=== PATIENT | male | born 1955 | race Two or more races ===

== ENCOUNTER 2018-03-28 07:50 | Inpatient (IN) | payer SELFPAY ==
[~2018-03-28] VITALS: Ht 167.6 cm; Wt 81.9 kg
[~2018-03-28 07:50] MED LIST: ALBU2.5V14 NEB; ALBU2.5V8 IH
[2018-03-28] MEDS ORDERED: ACETAMINOPHEN 500 MG TABLET PO ONE (08:30)
[2018-03-28] MEDS ORDERED: IBUPROFEN 600 MG TABLET. PO ONE (08:30)
[2018-03-28] MEDS ORDERED: PIPERACILLIN/TAZOBACTAM 4.5 GM in IV NORMAL SALINE 100ML 100 ML IV ONE (08:30)
[2018-03-28] MEDS ORDERED: VANCOMYCIN PER PHARMACY MC ONE (08:30)
--- NOTE | 2018-03-28 08:41 | PHYS DOC ---
Past Medical History Past Medical History: Asthma, Hypertension, Pneumonia, Other (BONG RAMSEY APRN) Past Surgical History: No Surgical History (BONG RAMSEY APRN) Alcohol Use: None Drug Use: None (BONG RAMSEY APRN) Adult General Chief Complaint Chief Complaint: SHORTNESS OF BREATH HPI HPI Patient is a 62 year old male with history of asthma, hypertension, who presents to the ED today complaining of a cough, shortness of breath, body aches and chills for 4 days. Patient is also complaining of vomiting intermittently for 4 days. Patient states he has tried using his inhaler with no relief. Patient denies any chest pain. Denies any abdominal pain or diarrhea. Historian was patient who speaks a little bit Bel[place]ian and the son who did most of the interpretation for Urdu (BONG RAMSEY APRN) Review of Systems Review of Systems Constitutional: Reports body aches, chills Eyes: Denies change in visual acuity, redness, or eye pain [] HENT: Denies nasal congestion or sore throat [] Respiratory: Reports cough and shortness of breath [] Cardiovascular: No additional information not addressed in HPI [] GI: Reports vomiting. Denies abdominal pain, nausea, bloody stools or diarrhea [ ] : Denies dysuria or hematuria [] Musculoskeletal: Denies back pain or joint pain [] Integument: Denies rash or skin lesions [] Neurologic: Denies headache, focal weakness or sensory changes [] All other systems were reviewed and found to be within normal limits, except as documented in this note. (BONG RAMSEY APRN) Current Medications Current Medications Current Medications Medications (Trade) Dose Ordered Sig/Jeanna Start Time Stop Time Status Last Admin Dose Admin Acetaminophen (Tylenol) 1,000 mg 1X ONCE 03/28/18 08:30 03/28/18 08:31 DC 03/28/18 09:31 1,000 MG Albuterol/ Ipratropium (Duoneb) 3 ml 1X ONCE 03/28/18 08:45 03/28/18 08:46 DC 03/28/18 08:56 3 ML Ibuprofen (Motrin) 600 mg 1X ONCE 03/28/18 08:30 03/28/18 08:31 DC 03/28/18 09:31 600 MG Methylprednisolone Sodium Succinate (SOLU-Medrol 125MG VIAL) 125 mg 1X ONCE 03/28/18 08:45 03/28/18 08:46 DC 03/28/18 09:35 125 MG Ondansetron HCl (Zofran) 4 mg 1X ONCE 03/28/18 08:45 03/28/18 08:46 DC 03/28/18 09:34 4 MG Piperacillin Sod/ Tazobactam Sod 4.5 gm/Sodium Chloride 100 ml @ 200 mls/hr 1X ONCE 03/28/18 08:30 03/28/18 08:59 DC 03/28/18 09:36 200 MLS/HR Sodium Chloride 1,000 ml @ 1,920 mls/hr Q32M 03/28/18 08:16 03/28/18 09:16 DC 03/28/18 09:29 1,920 MLS/HR Vancomycin HCl (Vanco Per Pharmacy) 1 each 1X ONCE 03/28/18 08:30 03/28/18 10:44 DC Vancomycin HCl 2 gm/Sodium Chloride 500 ml @ 250 mls/hr 1X ONCE 03/28/18 09:00 03/28/18 11:00 DC 03/28/18 09:00 250 MLS/HR (LISANDRA QUIROZ MD) Allergies Allergies Allergies Coded Allergies Type Severity Reaction Last Updated Verified No Known Drug Allergies 05/17/13 No (LISANDRA QUIROZ MD) Physical Exam Physical Exam Constitutional: Well developed, well nourished, no acute distress, non-toxic appearance. [] HENT: Normocephalic, atraumatic, bilateral external ears normal, oropharynx moist, no oral exudates, nose normal. [] Eyes: PERRLA, EOMI, conjunctiva normal, no discharge. [] Neck: Normal range of motion, no tenderness, supple, no stridor. [] Cardiovascular:Heart rate regular rhythm, no murmur [] Lungs & Thorax: Diminished breath sounds to posterior lung bases. Abdomen: Bowel sounds normal, soft, no tenderness, no masses, no pulsatile masses. [] Skin: Warm, dry, no erythema, no rash. [] Back: No tenderness, no CVA tenderness. [] Extremities: No tenderness, no cyanosis, no clubbing, ROM intact, no edema. [] Neurologic: Alert and oriented X 3, normal motor function, normal sensory function, no focal deficits noted. [] Psychologic: Affect normal, judgement normal, mood normal. [] (BONG RAMSEY APRN) Current Patient Data Vital Signs Vital Signs Date Time Temp Pulse Resp B/P (MAP) Pulse Ox O2 Delivery O2 Flow Rate FiO2 03/28/18 08:59 97 Room Air 03/28/18 08:06 103.2 90 149/78 (101) 103.2 (LISANDRA QUIROZ MD) Lab Values Laboratory Tests Test 03/28/18 08:15 03/28/18 08:20 03/28/18 09:26 Influenza Type A Antigen Positive (NEGATIVE) Influenza Type B Antigen Negative (NEGATIVE) White Blood Count 12.4 x10^3/uL (4.0-11.0) H Red Blood Count 4.76 x10^6/uL (4.30-5.70) Hemoglobin 15.4 g/dL (13.0-17.5) Hematocrit 44.4 % (39.0-53.0) Mean Corpuscular Volume 93 fL (79-100) Mean Corpuscular Hemoglobin 32 pg (25-35) Mean Corpuscular Hemoglobin Concent 35 g/dL (31-37) Red Cell Distribution Width 13.2 % (11.5-14.5) Platelet Count 183 x10^3/uL (140-400) Neutrophils (%) (Auto) 76 % (31-73) H Lymphocytes (%) (Auto) 13 % (24-48) L Monocytes (%) (Auto) 11 % (0-9) H Eosinophils (%) (Auto) 0 % (0-3) Basophils (%) (Auto) 0 % (0-3) Neutrophils # (Auto) 9.4 x10^3uL (1.8-7.7) H Lymphocytes # (Auto) 1.6 x10^3/uL (1.0-4.8) Monocytes # (Auto) 1.4 x10^3/uL (0.0-1.1) H Eosinophils # (Auto) 0.0 x10^3/uL (0.0-0.7) Basophils # (Auto) 0.0 x10^3/uL (0.0-0.2) Prothrombin Time 13.9 SEC (11.7-14.0) Prothrombin Time INR 1.1 (0.8-1.1) PTT 38 SEC (24-38) Sodium Level 130 mmol/L (136-145) L Potassium Level 3.4 mmol/L (3.5-5.1) L Chloride Level 97 mmol/L (98-107) L Carbon Dioxide Level 21 mmol/L (21-32) Anion Gap 12 (6-14) Blood Urea Nitrogen 16 mg/dL (8-26) Creatinine 1.0 mg/dL (0.7-1.3) Estimated GFR (Cockcroft-Gault) 75.7 BUN/Creatinine Ratio 16 (6-20) Glucose Level 107 mg/dL (70-99) H Lactic Acid Level 1.2 mmol/L (0.4-2.0) Calcium Level 8.3 mg/dL (8.5-10.1) L Total Bilirubin 1.5 mg/dL (0.2-1.0) H Aspartate Amino Transferase (AST) 40 U/L (15-37) H Alanine Aminotransferase (ALT) 74 U/L (16-63) H Alkaline Phosphatase 65 U/L (46-116) Creatine Kinase 223 U/L (39-308) Creatine Kinase MB (Mass) 1.0 ng/mL (0.0-3.6) Creatine Kinase MB Relative Index 0.4 % (0-4) Total Protein 7.9 g/dL (6.4-8.2) Albumin 3.4 g/dL (3.4-5.0) Albumin/Globulin Ratio 0.8 (1.0-1.7) L Procalcitonin 0.88 ng/mL (0.00-0.10) H Urine Collection Type Unknown Urine Color Cecilia Urine Clarity Clear Urine pH 5.5 Urine Specific [place] 1.025 Urine Protein 30 mg/dL (NEG-TRACE) Urine Glucose (UA) Negative mg/dL (NEG) Urine Ketones (Stick) Negative mg/dL (NEG) Urine Blood Negative (NEG) Urine Nitrite Negative (NEG) Urine Bilirubin Negative (NEG) Urine Urobilinogen Dipstick 1.0 mg/dL (0.2 mg/dL) Urine Leukocyte Esterase Negative (NEG) Urine RBC 0 /HPF (0-2) Urine WBC 1-4 /HPF (0-4) Urine Squamous Epithelial Cells Occ /LPF Urine Bacteria 0 /HPF (0-FEW) Urine Mucus Slight /LPF Laboratory Tests 03/28/18 08:20 Laboratory Tests 03/28/18 08:20 (LISANDRA QUIROZ MD) Lab Values Laboratory Tests Test 03/28/18 08:15 03/28/18 08:20 03/28/18 09:26 Influenza Type A Antigen Positive (NEGATIVE) Influenza Type B Antigen Negative (NEGATIVE) White Blood Count 12.4 x10^3/uL (4.0-11.0) H Red Blood Count 4.76 x10^6/uL (4.30-5.70) Hemoglobin 15.4 g/dL (13.0-17.5) Hematocrit 44.4 % (39.0-53.0) Mean Corpuscular Volume 93 fL (79-100) Mean Corpuscular Hemoglobin 32 pg (25-35) Mean Corpuscular Hemoglobin Concent 35 g/dL (31-37) Red Cell Distribution Width 13.2 % (11.5-14.5) Platelet Count 183 x10^3/uL (140-400) Neutrophils (%) (Auto) 76 % (31-73) H Lymphocytes (%) (Auto) 13 % (24-48) L Monocytes (%) (Auto) 11 % (0-9) H Eosinophils (%) (Auto) 0 % (0-3) Basophils (%) (Auto) 0 % (0-3) Neutrophils # (Auto) 9.4 x10^3uL (1.8-7.7) H Lymphocytes # (Auto) 1.6 x10^3/uL (1.0-4.8) Monocytes # (Auto) 1.4 x10^3/uL (0.0-1.1) H Eosinophils # (Auto) 0.0 x10^3/uL (0.0-0.7) Basophils # (Auto) 0.0 x10^3/uL (0.0-0.2) Prothrombin Time 13.9 SEC (11.7-14.0) Prothrombin Time INR 1.1 (0.8-1.1) PTT 38 SEC (24-38) Sodium Level 130 mmol/L (136-145) L Potassium Level 3.4 mmol/L (3.5-5.1) L Chloride Level 97 mmol/L (98-107) L Carbon Dioxide Level 21 mmol/L (21-32) Anion Gap 12 (6-14) Blood Urea Nitrogen 16 mg/dL (8-26) Creatinine 1.0 mg/dL (0.7-1.3) Estimated GFR (Cockcroft-Gault) 75.7 BUN/Creatinine Ratio 16 (6-20) Glucose Level 107 mg/dL (70-99) H Lactic Acid Level 1.2 mmol/L (0.4-2.0) Calcium Level 8.3 mg/dL (8.5-10.1) L Total Bilirubin 1.5 mg/dL (0.2-1.0) H Aspartate Amino Transferase (AST) 40 U/L (15-37) H Alanine Aminotransferase (ALT) 74 U/L (16-63) H Alkaline Phosphatase 65 U/L (46-116) Creatine Kinase 223 U/L (39-308) Creatine Kinase MB (Mass) 1.0 ng/mL (0.0-3.6) Creatine Kinase MB Relative Index 0.4 % (0-4) Total Protein 7.9 g/dL (6.4-8.2) Albumin 3.4 g/dL (3.4-5.0) Albumin/Globulin Ratio 0.8 (1.0-1.7) L Procalcitonin 0.88 ng/mL (0.00-0.10) H Urine Collection Type Unknown Urine Color Cecilia Urine Clarity Clear Urine pH 5.5 Urine Specific [place] 1.025 Urine Protein 30 mg/dL (NEG-TRACE) Urine Glucose (UA) Negative mg/dL (NEG) Urine Ketones (Stick) Negative mg/dL (NEG) Urine Blood Negative (NEG) Urine Nitrite Negative (NEG) Urine Bilirubin Negative (NEG) Urine Urobilinogen Dipstick 1.0 mg/dL (0.2 mg/dL) Urine Leukocyte Esterase Negative (NEG) Urine RBC 0 /HPF (0-2) Urine WBC 1-4 /HPF (0-4) Urine Squamous Epithelial Cells Occ /LPF Urine Bacteria 0 /HPF (0-FEW) Urine Mucus Slight /LPF Laboratory Tests 03/28/18 08:20 Laboratory Tests 03/28/18 08:20 (BONG RAMSEY APRN) EKG EKG 10:[address] Lebron sinus rhythm HR 92 no STEMI[] (BONG RAMSEY APRN) Radiology/Procedures Radiology/Procedures [] (BONG RAMSEY APRN) Course & Med Decision Making Course & Med Decision Making Pertinent Labs and Imaging studies reviewed. (See chart for details) This is a 62-year-old male patient presented to the ED today with complaints of cough, shortness of breath, vomiting, body aches, chills, symptoms for 4 days. Patient arrives in the ED with a temperature of 103.2, heart rate 90, blood pressure 149/78, O2 sats 96% on room air. Patient was started on the sepsis protocol including IV antibiotics and flu swabs and IV fluids. Patient was also given a DuoNeb treatment. Positive for influenza A, chest x-ray interpreted by radiologist was noted for right lower lobe infiltrate. CBC with a WBC of 12.4 and a left shift. CMP with sodium of 130, lactic is normal, AST 40 ALT 74 no abdominal pain. Consulted with Dr. Jiménez who accepted patient for admission. (BONG RAMSEY APRN) Course & Med Decision Making Staff Physician Addendum: I was working in the ER during the course of this patient's visit. I was available for consultation as needed, but I was not directly involved in the care of this patient. (LISANDRA QUIROZ MD) Dragon Disclaimer Dragon Disclaimer This electronic medical record was generated, in whole or in part, using a voice recognition dictation system. (BONG RAMSEY APRN) Departure Departure Impression: Primary Impression: Influenza A Additional Impressions: RLL pneumonia Shortness of breath Disposition: ADMITTED INPATIENT Condition: STABLE Referrals: NO PCP (PCP) Problem Qualifiers Additional Impressions: RLL pneumonia Pneumonia type: due to unspecified organism Qualified Codes: J18.1 - Lobar pneumonia, unspecified organism BONG RAMSEY APRN Mar 28, 2018 08:41 LISANDRA QUIROZ MD Mar 28, 2018 11:55
--- NOTE | 2018-03-28 08:42 | RAD ---
Chest, PA and Lateral: Technique: PA and lateral views of the chest were obtained. History: Cough, fever. Comparison: None. Findings: There is a focus of consolidation identified in the right lower lobe of the lung. The heart size grossly appears unremarkable. IMPRESSION: Focus of consolidation identified in the right lower lobe lung likely pneumonia. Follow-up to resolution. Electronically signed by: Bola Caba MD (03/28/2018 8:39 AM) [place] [id number]
[2018-03-28 08:43] LABS: BASO % 0 % (0-3); EOS % 0 % (0-3); HEMATOCRIT 44.4 % (39.0-53.0); HEMOGLOBIN 15.4 g/dL (13.0-17.5); LYMPH # 1.6 x10^3/uL (1.0-4.8); LYMPH % 13 % (24-48); MEAN CORPUSCULAR HEMOGLOBIN 32 pg (25-35); MEAN CORPUSCULAR HGB CONC 35 g/dL (31-37); MEAN CORPUSCULAR VOLUME 93 fL (79-100); MONO # 1.4 x10^3/uL (0.0-1.1); MONO % 11 % (0-9); NEUT # 9.4 x10^3uL (1.8-7.7); NEUT % 76 % (31-73); PLATELET COUNT 183 x10^3/uL (140-400); RED BLOOD COUNT 4.76 x10^6/uL (4.30-5.70); RED CELL DISTRIBUTION WIDTH 13.2 % (11.5-14.5); WHITE BLOOD COUNT 12.4 x10^3/uL (4.0-11.0)
[2018-03-28] MEDS ORDERED: methylPREDNISolone SOD SUCC PF 125 MG/2 ML VIAL. IV ONE (08:45)
[2018-03-28] MEDS ORDERED: IPRATRPIUM/ALBUTEROL 0.5/2.5MG 3 ML NEBU. NEB ONE (08:45)
[2018-03-28] MEDS ORDERED: ONDANSETRON PF 4 MG/2 ML VIAL. IV ONE (08:45)
[2018-03-28] MEDS: IV NORMAL SALINE 1000ML BAG 1,000 ML IV SCH ×2 (08:48→09:29)
[2018-03-28 08:56] LABS: CALCIUM 8.3 mg/dL (8.5-10.1); GFR 75.7; POTASSIUM 3.4 mmol/L (3.5-5.1)
[2018-03-28] MEDS ORDERED: VANCOMYCIN 2 GM in IV NORMAL SALINE 500ML BAG 500 ML IV ONE (09:00)
[2018-03-28 09:01] LABS: ALBUMIN 3.4 g/dL (3.4-5.0); ALBUMIN/GLOBULIN RATIO 0.8 (1.0-1.7); TOTAL BILIRUBIN 1.5 mg/dL (0.2-1.0); TOTAL PROTEIN 7.9 g/dL (6.4-8.2)
[2018-03-28 09:07] LABS: INFLUENZA A PATIENT POSITIVE (NEGATIVE); INFLUENZA B PATIENT NEGATIVE (NEGATIVE)
[2018-03-28 09:17] LABS: PROTHROMBIN TIME PATIENT 13.9 SEC (11.7-14.0)
[2018-03-28 09:58] LABS: BILIRUBIN,URINE NEGATIVE (NEG); CLARITY,URINE CLEAR; COLOR,URINE AMBER; NITRITE,URINE NEGATIVE (NEG); PH,URINE 5.5; PROTEIN,URINE 30 mg/dL (NEG-TRACE)
[2018-03-28 10:15] VITALS: BP 118/89
[2018-03-28] MEDS ORDERED: MORPHINE SULFATE 4 MG/ML VIAL. IV PRN (10:15)
[2018-03-28] MEDS ORDERED: ONDANSETRON PF 4 MG/2 ML VIAL. IV PRN (10:15)
[2018-03-28] MEDS ORDERED: ACETAMINOPHEN 325 MG TABLET. PO PRN (10:15)
[2018-03-28 10:21] LABS: SQUAMOUS EPITHELIAL CELL,UR OCC /LPF
[2018-03-28 10:22] LABS: BACTERIA,URINE 0 /HPF (0-FEW); RBC,URINE 0 /HPF (0-2)
--- NOTE | 2018-03-28 10:35 | PDOC1 ---
History and Physical Date of Admission Date of Admission DATE: 03/28/18 TIME: 10:35 Identification/Chief Complaint Chief Complaint seen in er , history of asthma, hypertension, who presents to the ED today complaining of a cough, shortness of breath, body aches and chills for 4 days. Patient is also complaining of vomiting intermittently for 4 days. Patient states he has tried using his inhaler with no relief. Patient denies any chest pain FLU SCREEN POS Past Medical History Cardiovascular: HTN, Hyperlipidemia Pulmonary: Asthma Dermatology: No pertinent hx Past Surgical History Past Surgical History: No pertinent history Family History Family History: Diabetes, Hypertension Social History Smoke: No ALCOHOL: none Drugs: None Current Problem List Problem List Problems Medical Problems: (1) Shortness of breath Status: Acute Current Medications Current Medications Current Medications Sodium Chloride 1,000 ml @ 1,920 mls/hr Q32M IV Last administered on at 09:29; Start 03/28/18 at 08:16; Stop 03/28/18 at 09:16; Status DC Piperacillin Sod/ Tazobactam Sod 4.5 gm/Sodium Chloride 100 ml @ 200 mls/hr 1X ONCE IV Last administered on 03/28/18at 09:36; Start 03/28/18 at 08:30; Stop 03/28/18 at 08:59; Status DC Vancomycin HCl (Vanco Per Pharmacy) 1 each 1X ONCE [facility] ; Start 03/28/18 at 08:30 ; Stop 03/28/18 at 08:31; Status UNV Acetaminophen (Tylenol) 1,000 mg 1X ONCE PO Last administered on 03/28/18at 09: 31; Start 03/28/18 at 08:30; Stop 03/28/18 at 08:31; Status DC Ibuprofen (Motrin) 600 mg 1X ONCE PO Last administered on 03/28/18at 09:31; Start 03/28/18 at 08:30; Stop 03/28/18 at 08:31; Status DC Vancomycin HCl 2 gm/Sodium Chloride 500 ml @ 250 mls/hr 1X ONCE IV Last administered on 03/28/18at 09:00; Start 03/28/18 at 09:00; Stop 03/28/18 at 10:59 Albuterol/ Ipratropium (Duoneb) 3 ml 1X ONCE NEB Last administered on at 08:56; Start 03/28/18 at 08:45; Stop 03/28/18 at 08:46; Status DC Methylprednisolone Sodium Succinate (SOLU-Medrol 125MG VIAL) 125 mg 1X ONCE IV Last administered on 03/28/18at 09:35; Start 03/28/18 at 08:45; Stop 03/28/18 at 08:46; Status DC Ondansetron HCl (Zofran) 4 mg 1X ONCE IV Last administered on 03/28/18at 09:34 ; Start 03/28/18 at 08:45; Stop 03/28/18 at 08:46; Status DC Ondansetron HCl (Zofran) 4 mg PRN Q8HRS PRN IV NAUSEA/VOMITING; Start 03/28/18 at 10:15; Stop 03/29/18 at 10:14; Status UNV Morphine Sulfate (Morphine Sulfate) 2 mg PRN Q2HR PRN IV PAIN; Start 03/28/18 at 10:15; Stop 03/29/18 at 10:14; Status UNV Acetaminophen (Tylenol) 650 mg PRN Q4HRS PRN PO FEVER; Start 03/28/18 at 10:15 ; Stop 03/29/18 at 10:14; Status UNV Active Scripts Active Reported Proair Hfa Inhaler (Albuterol Sulfate) 8.5 Gm Hfa.aer.ad 2 Puff IH PRN Q4-6HRS Albuterol Sulfate Conc Neb Soln (Albuterol Sulfate) 2.5 Mg/0.5 Ml Vial.neb 1 Vial NEB Q6HRS Allergies Allergies: Coded Allergies: No Known Drug Allergies (Unverified , 05/17/13) ROS Review of System Review of Systems Review of Systems Constitutional: Reports body aches, chills Eyes: Denies change in visual acuity, redness, or eye pain [] HENT: Denies nasal congestion or sore throat [] Respiratory: Reports cough and shortness of breath X 5 DAYS[] Cardiovascular: No additional information not addressed in HPI [] GI: Reports vomiting. Denies abdominal pain, nausea, bloody stools or diarrhea [ ] : Denies dysuria or hematuria [] Musculoskeletal: Denies back pain or joint pain [] Integument: Denies rash or skin lesions [] Neurologic: Denies headache, focal weakness or sensory changes [] 14 PT systems were reviewed and found to be within normal limits, except as documented in this note. PSYCHOLOGICAL ROS: No: Anxiety, Behavioral Disorder, Concentration difficultie , Decreased libido, Depression, Disorientation, Hallucinations, Hostility, Irritablity, Memory difficulties, Mood Swings, Obsessive thoughts, Physical abuse, Sexual abuse, Sleep disturbances, Suicidal ideation, Other ALLERGY AND IMMUNOLOGY: No: Hives, Insect Bite Sensitivity, Itchy/Watery Eyes, Nasal Congestion, Post Nasal Drip, Seasonal Allergies, Other Hematological and Lymphatic: No: Bleeding Problems, Blood Clots, Blood Transfusions, Brusing, Night Sweats, Pallor, Swollen Lymph Nodes, Other Respiratory: YES: Cough Cardiovascular: No Chest Pain, No Palpitations, No Orthopnea, No Paroxysmal Noc. Dyspnea, No Edema, No Lt Headedness, No Other Neurological: No Behavorial Changes, No Bowel/Bladder ControlChng, No Confusion , No Dizziness, No Gait Disturbance, No Headaches, No Impaired Coord/balance, No Memory Loss, No Numbness/Tingling, No Seizures, No Speech Problems, No Tremors, No Visual Changes, No Weakness, No Other Physical Exam Physical Exam Physical Exam Physical Exam Constitutional: Well developed, well nourished, MILD acute distress, non-toxic appearance. [] HENT: Normocephalic, atraumatic, bilateral external ears normal, oropharynx moist, no oral exudates, nose normal. [] Eyes: PERRLA, EOMI, conjunctiva normal, no discharge. [] Neck: Normal range of motion, no tenderness, supple, no stridor. [] Cardiovascular:Heart rate regular rhythm, no murmur [] Lungs & Thorax: Diminished breath sounds to posterior lung bases. FEW RHONCHI Abdomen: Bowel sounds normal, soft, no tenderness, no masses, no pulsatile masses. [] Skin: Warm, dry, no erythema, no rash. [] Back: No tenderness, no CVA tenderness. [] Extremities: No tenderness, no cyanosis, no clubbing, ROM intact, no edema. [] Neurologic: Alert and oriented X 3, normal motor function, normal sensory function, no focal deficits noted. [] Psychologic: Affect normal, judgement normal, mood normal. [] General: Alert, Oriented X3, Cooperative, mild distress HEENT: Atraumatic, PERRLA, EOMI, Mucous membr. moist/pink Lungs: Normal air movement Heart: S1S2, RRR, no thrills Breasts: Not examined Abdomen: Normal bowel sounds, Soft Rectal Exam: not examined PELVIC: Examination not indicated Extremities: No cyanosis, No edema Skin: No breakdown Neuro: Normal speech, Normal tone, Cranial nerves 3-12 NL Psych/Mental Status: Mental status NL, Mood NL Vitals Vitals Vital Signs Date Time Temp Pulse Resp B/P (MAP) Pulse Ox O2 Delivery O2 Flow Rate FiO2 03/28/18 09:59 100.9 100.9 03/28/18 09:38 91 16 119/69 (86) 94 Room Air Labs Labs Laboratory Tests Test 03/28/18 08:15 03/28/18 08:20 03/28/18 09:26 Influenza Type A Antigen Positive (NEGATIVE) Influenza Type B Antigen Negative (NEGATIVE) White Blood Count 12.4 x10^3/uL (4.0-11.0) Red Blood Count 4.76 x10^6/uL (4.30-5.70) Hemoglobin 15.4 g/dL (13.0-17.5) Hematocrit 44.4 % (39.0-53.0) Mean Corpuscular Volume 93 fL (79-100) Mean Corpuscular Hemoglobin 32 pg (25-35) Mean Corpuscular Hemoglobin Concent 35 g/dL (31-37) Red Cell Distribution Width 13.2 % (11.5-14.5) Platelet Count 183 x10^3/uL (140-400) Neutrophils (%) (Auto) 76 % (31-73) Lymphocytes (%) (Auto) 13 % (24-48) Monocytes (%) (Auto) 11 % (0-9) Eosinophils (%) (Auto) 0 % (0-3) Basophils (%) (Auto) 0 % (0-3) Neutrophils # (Auto) 9.4 x10^3uL (1.8-7.7) Lymphocytes # (Auto) 1.6 x10^3/uL (1.0-4.8) Monocytes # (Auto) 1.4 x10^3/uL (0.0-1.1) Eosinophils # (Auto) 0.0 x10^3/uL (0.0-0.7) Basophils # (Auto) 0.0 x10^3/uL (0.0-0.2) Prothrombin Time 13.9 SEC (11.7-14.0) Prothromb Time International Ratio 1.1 (0.8-1.1) Activated Partial Thromboplast Time 38 SEC (24-38) Sodium Level 130 mmol/L (136-145) Potassium Level 3.4 mmol/L (3.5-5.1) Chloride Level 97 mmol/L (98-107) Carbon Dioxide Level 21 mmol/L (21-32) Anion Gap 12 (6-14) Blood Urea Nitrogen 16 mg/dL (8-26) Creatinine 1.0 mg/dL (0.7-1.3) Estimated GFR (Cockcroft-Gault) 75.7 BUN/Creatinine Ratio 16 (6-20) Glucose Level 107 mg/dL (70-99) Lactic Acid Level 1.2 mmol/L (0.4-2.0) Calcium Level 8.3 mg/dL (8.5-10.1) Total Bilirubin 1.5 mg/dL (0.2-1.0) Aspartate Amino Transf (AST/SGOT) 40 U/L (15-37) Alanine Aminotransferase (ALT/SGPT) 74 U/L (16-63) Alkaline Phosphatase 65 U/L (46-116) Creatine Kinase 223 U/L (39-308) Creatine Kinase MB (Mass) 1.0 ng/mL (0.0-3.6) Creatine Kinase MB Relative Index 0.4 % (0-4) Total Protein 7.9 g/dL (6.4-8.2) Albumin 3.4 g/dL (3.4-5.0) Albumin/Globulin Ratio 0.8 (1.0-1.7) Procalcitonin 0.88 ng/mL (0.00-0.10) Urine Collection Type Unknown Urine Color Cecilia Urine Clarity Clear Urine pH 5.5 Urine Specific Gem 1.025 Urine Protein 30 mg/dL (NEG-TRACE) Urine Glucose (UA) Negative mg/dL (NEG) Urine Ketones (Stick) Negative mg/dL (NEG) Urine Blood Negative (NEG) Urine Nitrite Negative (NEG) Urine Bilirubin Negative (NEG) Urine Urobilinogen Dipstick 1.0 mg/dL (0.2 mg/dL) Urine Leukocyte Esterase Negative (NEG) Urine RBC 0 /HPF (0-2) Urine WBC 1-4 /HPF (0-4) Urine Squamous Epithelial Cells Occ /LPF Urine Bacteria 0 /HPF (0-FEW) Urine Mucus Slight /LPF Laboratory Tests Test 03/28/18 08:15 03/28/18 08:20 03/28/18 09:26 Influenza Type A Antigen Positive (NEGATIVE) Influenza Type B Antigen Negative (NEGATIVE) White Blood Count 12.4 x10^3/uL (4.0-11.0) Red Blood Count 4.76 x10^6/uL (4.30-5.70) Hemoglobin 15.4 g/dL (13.0-17.5) Hematocrit 44.4 % (39.0-53.0) Mean Corpuscular Volume 93 fL (79-100) Mean Corpuscular Hemoglobin 32 pg (25-35) Mean Corpuscular Hemoglobin Concent 35 g/dL (31-37) Red Cell Distribution Width 13.2 % (11.5-14.5) Platelet Count 183 x10^3/uL (140-400) Neutrophils (%) (Auto) 76 % (31-73) Lymphocytes (%) (Auto) 13 % (24-48) Monocytes (%) (Auto) 11 % (0-9) Eosinophils (%) (Auto) 0 % (0-3) Basophils (%) (Auto) 0 % (0-3) Neutrophils # (Auto) 9.4 x10^3uL (1.8-7.7) Lymphocytes # (Auto) 1.6 x10^3/uL (1.0-4.8) Monocytes # (Auto) 1.4 x10^3/uL (0.0-1.1) Eosinophils # (Auto) 0.0 x10^3/uL (0.0-0.7) Basophils # (Auto) 0.0 x10^3/uL (0.0-0.2) Prothrombin Time 13.9 SEC (11.7-14.0) Prothromb Time International Ratio 1.1 (0.8-1.1) Activated Partial Thromboplast Time 38 SEC (24-38) Sodium Level 130 mmol/L (136-145) Potassium Level 3.4 mmol/L (3.5-5.1) Chloride Level 97 mmol/L (98-107) Carbon Dioxide Level 21 mmol/L (21-32) Anion Gap 12 (6-14) Blood Urea Nitrogen 16 mg/dL (8-26) Creatinine 1.0 mg/dL (0.7-1.3) Estimated GFR (Cockcroft-Gault) 75.7 BUN/Creatinine Ratio 16 (6-20) Glucose Level 107 mg/dL (70-99) Lactic Acid Level 1.2 mmol/L (0.4-2.0) Calcium Level 8.3 mg/dL (8.5-10.1) Total Bilirubin 1.5 mg/dL (0.2-1.0) Aspartate Amino Transf (AST/SGOT) 40 U/L (15-37) Alanine Aminotransferase (ALT/SGPT) 74 U/L (16-63) Alkaline Phosphatase 65 U/L (46-116) Creatine Kinase 223 U/L (39-308) Creatine Kinase MB (Mass) 1.0 ng/mL (0.0-3.6) Creatine Kinase MB Relative Index 0.4 % (0-4) Total Protein 7.9 g/dL (6.4-8.2) Albumin 3.4 g/dL (3.4-5.0) Albumin/Globulin Ratio 0.8 (1.0-1.7) Procalcitonin 0.88 ng/mL (0.00-0.10) Urine Collection Type Unknown Urine Color Cecilia Urine Clarity Clear Urine pH 5.5 Urine Specific Gem 1.025 Urine Protein 30 mg/dL (NEG-TRACE) Urine Glucose (UA) Negative mg/dL (NEG) Urine Ketones (Stick) Negative mg/dL (NEG) Urine Blood Negative (NEG) Urine Nitrite Negative (NEG) Urine Bilirubin Negative (NEG) Urine Urobilinogen Dipstick 1.0 mg/dL (0.2 mg/dL) Urine Leukocyte Esterase Negative (NEG) Urine RBC 0 /HPF (0-2) Urine WBC 1-4 /HPF (0-4) Urine Squamous Epithelial Cells Occ /LPF Urine Bacteria 0 /HPF (0-FEW) Urine Mucus Slight /LPF Images Images Chest, PA and Lateral: Technique: PA and lateral views of the chest were obtained. History: Cough, fever. Comparison: None. Findings: There is a focus of consolidation identified in the right lower lobe of the lung. The heart size grossly appears unremarkable. IMPRESSION: Focus of consolidation identified in the right lower lobe lung likely pneumonia. Follow-up to resolution. Electronically signed by: Bola Caba MD (03/28/2018 8:39 AM) [place] [id number] DICTATED and SIGNED BY: BOLA CABA MD DATE: 03/28/18 0838 VTE Prophylaxis Ordered VTE Prophylaxis Devices: Yes VTE Pharmacological Prophylaxi: Yes Assessment/Plan Assessment/Plan IMPRESSION 1. consolidation identified in the right lower lobe lung likely pneumonia. 2. FLU A POS 3. HX HTN 4. MILD HYPONATREMIA, HYPOKALEMIA 5. HX ASTHMA PLAN IV ZOSYN/ ,LEVAQUIN TAMIFLU 75 MG PO BID X 5 DAYS K-DUR 40 MEQ X1 IV FLUID SUPPORT DVT PROPHYLAXIS LUI BOB MD Mar 28, 2018 10:35
[2018-03-28] MEDS ORDERED: PROAIR (10:43)
[2018-03-28] MEDS ORDERED: LISI40TA2 (10:43)
[2018-03-28] MEDS ORDERED: BUDE10.2 (10:43)
[2018-03-28] MEDS: ENOXAPARIN 40 MG/0.4 ML SYRINGE. SQ SCH (12:45)
[2018-03-28] MEDS: OSELTAMIVIR 75 MG CAPSULE PO SCH ×2 (13:07→21:01)
[2018-03-28] MEDS: methylPREDNISolone SOD SUCC PF 40 MG/ML VIAL. IV SCH ×2 (13:08→22:18)
--- NOTE | 2018-03-28 15:12 | EKG ---
[facility] [address] [place] [address] Test Date: 2018-03-28 Test Time: 09:03:43 Pat Name: RANDEE MARTINEZDepartment: Room: Gender: M Booth Operator: : [id number] Requested By: BONG RAMSEY Order Number: [id number] Reading MD: Measurements Intervals [place] Rate: P: ME: QRS: QRSD: T: QT: QTc: Interpretive Statements
[2018-03-28 15:20] VITALS: BP 120/71
[2018-03-28] MEDS: IPRATRPIUM/ALBUTEROL 0.5/2.5MG 3 ML NEBU. NEB SCH ×2 (15:55→21:44)
[2018-03-28] MEDS: PIPERACILLIN/TAZOBACTAM 4.5 GM in IV NORMAL SALINE 100ML 100 ML IV SCH ×2 (16:19→22:18)
[2018-03-28 19:00] VITALS: BP 124/72
[2018-03-28] MEDS: LACTOBACILLUS RHAMNOSUS GG 1 CAPSULE. PO SCH (21:01)
[2018-03-28 23:00] VITALS: BP 144/77
[2018-03-29 03:00] VITALS: BP 133/64
[2018-03-29] MEDS: PIPERACILLIN/TAZOBACTAM 4.5 GM in IV NORMAL SALINE 100ML 100 ML IV SCH ×2 (04:14→08:11)
[2018-03-29 04:43] LABS: BASO % 0 % (0-3); EOS % 0 % (0-3); HEMATOCRIT 43.7 % (39.0-53.0); HEMOGLOBIN 15.1 g/dL (13.0-17.5); LYMPH # 1.1 x10^3/uL (1.0-4.8); LYMPH % 8 % (24-48); MEAN CORPUSCULAR HEMOGLOBIN 32 pg (25-35); MEAN CORPUSCULAR HGB CONC 35 g/dL (31-37); MEAN CORPUSCULAR VOLUME 94 fL (79-100); MONO # 0.5 x10^3/uL (0.0-1.1); MONO % 4 % (0-9); NEUT # 12.1 x10^3uL (1.8-7.7); NEUT % 88 % (31-73); PLATELET COUNT 197 x10^3/uL (140-400); RED BLOOD COUNT 4.66 x10^6/uL (4.30-5.70); RED CELL DISTRIBUTION WIDTH 13.2 % (11.5-14.5); WHITE BLOOD COUNT 13.7 x10^3/uL (4.0-11.0)
[2018-03-29 04:47] LABS: CALCIUM 8.5 mg/dL (8.5-10.1); GFR 75.7; POTASSIUM 3.3 mmol/L (3.5-5.1)
[2018-03-29] MEDS: methylPREDNISolone SOD SUCC PF 40 MG/ML VIAL. IV SCH ×3 (06:00→21:16)
--- NOTE | 2018-03-29 06:20 | NUR ---
IP: Pt is influenza + requiring droplet precautions for 5 days and 24 hours without a fever, whichever is longest.
[2018-03-29 07:00] VITALS: BP 134/75
[2018-03-29] MEDS: IPRATRPIUM/ALBUTEROL 0.5/2.5MG 3 ML NEBU. NEB SCH ×4 (07:22→19:00)
[2018-03-29] MEDS: OSELTAMIVIR 75 MG CAPSULE PO SCH ×2 (08:11→21:15)
[2018-03-29] MEDS: LACTOBACILLUS RHAMNOSUS GG 1 CAPSULE. PO SCH ×2 (08:11→21:16)
[2018-03-29 11:00] VITALS: BP 153/91
--- NOTE | 2018-03-29 11:07 | PDOC ---
Infectious Disease Note Vital Signs: Vital Signs Vital Signs Date Time Temp Pulse Resp B/P (MAP) Pulse Ox O2 Delivery O2 Flow Rate FiO2 03/29/18 07:20 94 Room Air 03/29/18 07:00 97.6 87 18 134/75 (94) 97.6 Medications: Inpatient Meds: Current Medications Medications (Trade) Dose Ordered Sig/Jeanna Start Time Stop Time Status Last Admin Dose Admin Acetaminophen (Tylenol) 650 mg PRN Q4HRS PRN 03/28/18 10:15 03/29/18 10:14 DC 03/28/18 13:08 650 MG Albuterol/ Ipratropium (Duoneb) 3 ml RTQID 03/28/18 16:00 03/29/18 07:22 3 ML Enoxaparin Sodium (Lovenox 40mg Syringe) 40 mg Q24H 03/28/18 12:45 Ibuprofen (Motrin) 600 mg 1X ONCE 03/28/18 08:30 03/28/18 08:31 DC 03/28/18 09:31 600 MG Lactobacillus Rhamnosus (Culturelle) 1 cap BID 03/28/18 21:00 03/29/18 08:11 1 CAP Levofloxacin/ Dextrose 100 ml @ 100 mls/hr Q24H 03/28/18 13:00 03/29/18 10:58 DC 03/28/18 13:08 100 MLS/HR Linezolid (Zyvox) 600 mg BID 03/29/18 11:00 Methylprednisolone Sodium Succinate (SOLU-Medrol 40MG VIAL) 80 mg Q8HRS 03/28/18 14:00 03/29/18 06:00 80 MG Methylprednisolone Sodium Succinate (SOLU-Medrol 125MG VIAL) 125 mg 1X ONCE 03/28/18 08:45 03/28/18 08:46 DC 03/28/18 09:35 125 MG Morphine Sulfate (Morphine Sulfate) 2 mg PRN Q2HR PRN 03/28/18 10:15 03/29/18 10:14 DC Ondansetron HCl (Zofran) 4 mg PRN Q8HRS PRN 03/28/18 10:15 03/29/18 10:14 DC Oseltamivir Phosphate (Tamiflu) 75 mg BID 03/28/18 13:00 04/02/18 12:59 03/29/18 08:11 75 MG Piperacillin Sod/ Tazobactam Sod 3.375 gm/Sodium Chloride 50 ml @ 100 mls/hr Q6HRS 03/29/18 12:00 Piperacillin Sod/ Tazobactam Sod 4.5 gm/Sodium Chloride 100 ml @ 200 mls/hr Q6H 03/28/18 16:00 03/29/18 10:58 DC 03/29/18 08:11 200 MLS/HR Sodium Chloride 1,000 ml @ 1,920 mls/hr Q32M 03/28/18 08:16 03/28/18 09:16 DC 03/28/18 08:48 1,920 MLS/HR Vancomycin HCl (Vanco Per Pharmacy) 1 each 1X ONCE 03/28/18 08:30 03/28/18 10:44 DC 03/28/18 08:30 1 EACH Vancomycin HCl 2 gm/Sodium Chloride 500 ml @ 250 mls/hr 1X ONCE 03/28/18 09:00 03/29/18 10:58 DC 03/28/18 09:00 250 MLS/HR Labs: Lab Laboratory Tests Test 03/28/18 12:30 03/29/18 04:08 Lactic Acid Level 1.1 mmol/L (0.4-2.0) White Blood Count 13.7 x10^3/uL (4.0-11.0) Red Blood Count 4.66 x10^6/uL (4.30-5.70) Hemoglobin 15.1 g/dL (13.0-17.5) Hematocrit 43.7 % (39.0-53.0) Mean Corpuscular Volume 94 fL (79-100) Mean Corpuscular Hemoglobin 32 pg (25-35) Mean Corpuscular Hemoglobin Concent 35 g/dL (31-37) Red Cell Distribution Width 13.2 % (11.5-14.5) Platelet Count 197 x10^3/uL (140-400) Neutrophils (%) (Auto) 88 % (31-73) Lymphocytes (%) (Auto) 8 % (24-48) Monocytes (%) (Auto) 4 % (0-9) Eosinophils (%) (Auto) 0 % (0-3) Basophils (%) (Auto) 0 % (0-3) Neutrophils # (Auto) 12.1 x10^3uL (1.8-7.7) Lymphocytes # (Auto) 1.1 x10^3/uL (1.0-4.8) Monocytes # (Auto) 0.5 x10^3/uL (0.0-1.1) Eosinophils # (Auto) 0.0 x10^3/uL (0.0-0.7) Basophils # (Auto) 0.0 x10^3/uL (0.0-0.2) Sodium Level 141 mmol/L (136-145) Potassium Level 3.3 mmol/L (3.5-5.1) Chloride Level 107 mmol/L (98-107) Carbon Dioxide Level 19 mmol/L (21-32) Anion Gap 15 (6-14) Blood Urea Nitrogen 15 mg/dL (8-26) Creatinine 1.0 mg/dL (0.7-1.3) Estimated GFR (Cockcroft-Gault) 75.7 Glucose Level 164 mg/dL (70-99) Calcium Level 8.5 mg/dL (8.5-10.1) Objective: Assessment: Rt lung pneumonia Leucocytosis fever Influenza A HTN Plan: Plan of Care cont zosyn and tamiflu add zyvox dc iv vanc and levaquin f/u labs in am and cults Thank you [id number] MUNIR HENDRICKSON MD Mar 29, 2018 11:07
--- NOTE | 2018-03-29 11:18 | PDOC ---
PROGRESS NOTES History of Present Illness History of Present Illness Assessment/Plan Assessment/Plan IMPRESSION 1. consolidation identified in the right lower lobe lung likely pneumonia. 2. FLU A POS 3. HX HTN 4. MILD HYPONATREMIA, HYPOKALEMIA 5. HX ASTHMA 6. SEPSIS PLAN IV ZOSYN/ ,ZYVOX D/C VANC AND LEVAQUIN TAMIFLU 75 MG PO BID X 5 DAYS K-DUR 40 MEQ X1 03/28 03/29 IV FLUID SUPPORT DVT PROPHYLAXIS ID CONSULT HUMIDOD DM 2 PO BID LUI BOB MD Mar 28, 2018 10:35 Past Medical History Past Medical History: Asthma, Pneumonia, Other Past Surgical History: No Surgical History, Other Alcohol Use: None Drug Use: None Vitals Vitals Vital Signs Date Time Temp Pulse Resp B/P (MAP) Pulse Ox O2 Delivery O2 Flow Rate FiO2 03/29/18 11:00 98.1 70 17 153/91 (111) 92 Room Air 98.1 Physical Exam General: Alert, Oriented X3, Cooperative, mild distress Heart: Regular rate, Normal S1 Lungs: Crackles Abdomen: Normal bowel sounds, Soft Extremities: No clubbing, No cyanosis, No edema Skin: No breakdown Labs LABS Laboratory Tests Test 03/28/18 12:30 03/29/18 04:08 Lactic Acid Level 1.1 mmol/L (0.4-2.0) White Blood Count 13.7 x10^3/uL (4.0-11.0) Red Blood Count 4.66 x10^6/uL (4.30-5.70) Hemoglobin 15.1 g/dL (13.0-17.5) Hematocrit 43.7 % (39.0-53.0) Mean Corpuscular Volume 94 fL (79-100) Mean Corpuscular Hemoglobin 32 pg (25-35) Mean Corpuscular Hemoglobin Concent 35 g/dL (31-37) Red Cell Distribution Width 13.2 % (11.5-14.5) Platelet Count 197 x10^3/uL (140-400) Neutrophils (%) (Auto) 88 % (31-73) Lymphocytes (%) (Auto) 8 % (24-48) Monocytes (%) (Auto) 4 % (0-9) Eosinophils (%) (Auto) 0 % (0-3) Basophils (%) (Auto) 0 % (0-3) Neutrophils # (Auto) 12.1 x10^3uL (1.8-7.7) Lymphocytes # (Auto) 1.1 x10^3/uL (1.0-4.8) Monocytes # (Auto) 0.5 x10^3/uL (0.0-1.1) Eosinophils # (Auto) 0.0 x10^3/uL (0.0-0.7) Basophils # (Auto) 0.0 x10^3/uL (0.0-0.2) Sodium Level 141 mmol/L (136-145) Potassium Level 3.3 mmol/L (3.5-5.1) Chloride Level 107 mmol/L (98-107) Carbon Dioxide Level 19 mmol/L (21-32) Anion Gap 15 (6-14) Blood Urea Nitrogen 15 mg/dL (8-26) Creatinine 1.0 mg/dL (0.7-1.3) Estimated GFR (Cockcroft-Gault) 75.7 Glucose Level 164 mg/dL (70-99) Calcium Level 8.5 mg/dL (8.5-10.1) Assessment and Plan Assessmemt and Plan Problems Medical Problems: (1) Shortness of breath Status: Acute Comment Review of Relevant I have reviewed the following items natasha (where applicable) has been applied. Labs Laboratory Tests Test 03/28/18 08:15 03/28/18 08:20 03/28/18 09:26 03/28/18 12:30 Influenza Type A Antigen Positive (NEGATIVE) Influenza Type B Antigen Negative (NEGATIVE) White Blood Count 12.4 x10^3/uL (4.0-11.0) Red Blood Count 4.76 x10^6/uL (4.30-5.70) Hemoglobin 15.4 g/dL (13.0-17.5) Hematocrit 44.4 % (39.0-53.0) Mean Corpuscular Volume 93 fL (79-100) Mean Corpuscular Hemoglobin 32 pg (25-35) Mean Corpuscular Hemoglobin Concent 35 g/dL (31-37) Red Cell Distribution Width 13.2 % (11.5-14.5) Platelet Count 183 x10^3/uL (140-400) Neutrophils (%) (Auto) 76 % (31-73) Lymphocytes (%) (Auto) 13 % (24-48) Monocytes (%) (Auto) 11 % (0-9) Eosinophils (%) (Auto) 0 % (0-3) Basophils (%) (Auto) 0 % (0-3) Neutrophils # (Auto) 9.4 x10^3uL (1.8-7.7) Lymphocytes # (Auto) 1.6 x10^3/uL (1.0-4.8) Monocytes # (Auto) 1.4 x10^3/uL (0.0-1.1) Eosinophils # (Auto) 0.0 x10^3/uL (0.0-0.7) Basophils # (Auto) 0.0 x10^3/uL (0.0-0.2) Prothrombin Time 13.9 SEC (11.7-14.0) Prothromb Time International Ratio 1.1 (0.8-1.1) Activated Partial Thromboplast Time 38 SEC (24-38) Sodium Level 130 mmol/L (136-145) Potassium Level 3.4 mmol/L (3.5-5.1) Chloride Level 97 mmol/L (98-107) Carbon Dioxide Level 21 mmol/L (21-32) Anion Gap 12 (6-14) Blood Urea Nitrogen 16 mg/dL (8-26) Creatinine 1.0 mg/dL (0.7-1.3) Estimated GFR (Cockcroft-Gault) 75.7 BUN/Creatinine Ratio 16 (6-20) Glucose Level 107 mg/dL (70-99) Lactic Acid Level 1.2 mmol/L (0.4-2.0) 1.1 mmol/L (0.4-2.0) Calcium Level 8.3 mg/dL (8.5-10.1) Total Bilirubin 1.5 mg/dL (0.2-1.0) Aspartate Amino Transf (AST/SGOT) 40 U/L (15-37) Alanine Aminotransferase (ALT/SGPT) 74 U/L (16-63) Alkaline Phosphatase 65 U/L (46-116) Creatine Kinase 223 U/L (39-308) Creatine Kinase MB (Mass) 1.0 ng/mL (0.0-3.6) Creatine Kinase MB Relative Index 0.4 % (0-4) Total Protein 7.9 g/dL (6.4-8.2) Albumin 3.4 g/dL (3.4-5.0) Albumin/Globulin Ratio 0.8 (1.0-1.7) Procalcitonin 0.88 ng/mL (0.00-0.10) Urine Collection Type Unknown Urine Color Cecilia Urine Clarity Clear Urine pH 5.5 Urine Specific Garrett 1.025 Urine Protein 30 mg/dL (NEG-TRACE) Urine Glucose (UA) Negative mg/dL (NEG) Urine Ketones (Stick) Negative mg/dL (NEG) Urine Blood Negative (NEG) Urine Nitrite Negative (NEG) Urine Bilirubin Negative (NEG) Urine Urobilinogen Dipstick 1.0 mg/dL (0.2 mg/dL) Urine Leukocyte Esterase Negative (NEG) Urine RBC 0 /HPF (0-2) Urine WBC 1-4 /HPF (0-4) Urine Squamous Epithelial Cells Occ /LPF Urine Bacteria 0 /HPF (0-FEW) Urine Mucus Slight /LPF Test 03/29/18 04:08 White Blood Count 13.7 x10^3/uL (4.0-11.0) Red Blood Count 4.66 x10^6/uL (4.30-5.70) Hemoglobin 15.1 g/dL (13.0-17.5) Hematocrit 43.7 % (39.0-53.0) Mean Corpuscular Volume 94 fL (79-100) Mean Corpuscular Hemoglobin 32 pg (25-35) Mean Corpuscular Hemoglobin Concent 35 g/dL (31-37) Red Cell Distribution Width 13.2 % (11.5-14.5) Platelet Count 197 x10^3/uL (140-400) Neutrophils (%) (Auto) 88 % (31-73) Lymphocytes (%) (Auto) 8 % (24-48) Monocytes (%) (Auto) 4 % (0-9) Eosinophils (%) (Auto) 0 % (0-3) Basophils (%) (Auto) 0 % (0-3) Neutrophils # (Auto) 12.1 x10^3uL (1.8-7.7) Lymphocytes # (Auto) 1.1 x10^3/uL (1.0-4.8) Monocytes # (Auto) 0.5 x10^3/uL (0.0-1.1) Eosinophils # (Auto) 0.0 x10^3/uL (0.0-0.7) Basophils # (Auto) 0.0 x10^3/uL (0.0-0.2) Sodium Level 141 mmol/L (136-145) Potassium Level 3.3 mmol/L (3.5-5.1) Chloride Level 107 mmol/L (98-107) Carbon Dioxide Level 19 mmol/L (21-32) Anion Gap 15 (6-14) Blood Urea Nitrogen 15 mg/dL (8-26) Creatinine 1.0 mg/dL (0.7-1.3) Estimated GFR (Cockcroft-Gault) 75.7 Glucose Level 164 mg/dL (70-99) Calcium Level 8.5 mg/dL (8.5-10.1) Laboratory Tests Test 03/28/18 12:30 03/29/18 04:08 Lactic Acid Level 1.1 mmol/L (0.4-2.0) White Blood Count 13.7 x10^3/uL (4.0-11.0) Red Blood Count 4.66 x10^6/uL (4.30-5.70) Hemoglobin 15.1 g/dL (13.0-17.5) Hematocrit 43.7 % (39.0-53.0) Mean Corpuscular Volume 94 fL (79-100) Mean Corpuscular Hemoglobin 32 pg (25-35) Mean Corpuscular Hemoglobin Concent 35 g/dL (31-37) Red Cell Distribution Width 13.2 % (11.5-14.5) Platelet Count 197 x10^3/uL (140-400) Neutrophils (%) (Auto) 88 % (31-73) Lymphocytes (%) (Auto) 8 % (24-48) Monocytes (%) (Auto) 4 % (0-9) Eosinophils (%) (Auto) 0 % (0-3) Basophils (%) (Auto) 0 % (0-3) Neutrophils # (Auto) 12.1 x10^3uL (1.8-7.7) Lymphocytes # (Auto) 1.1 x10^3/uL (1.0-4.8) Monocytes # (Auto) 0.5 x10^3/uL (0.0-1.1) Eosinophils # (Auto) 0.0 x10^3/uL (0.0-0.7) Basophils # (Auto) 0.0 x10^3/uL (0.0-0.2) Sodium Level 141 mmol/L (136-145) Potassium Level 3.3 mmol/L (3.5-5.1) Chloride Level 107 mmol/L (98-107) Carbon Dioxide Level 19 mmol/L (21-32) Anion Gap 15 (6-14) Blood Urea Nitrogen 15 mg/dL (8-26) Creatinine 1.0 mg/dL (0.7-1.3) Estimated GFR (Cockcroft-Gault) 75.7 Glucose Level 164 mg/dL (70-99) Calcium Level 8.5 mg/dL (8.5-10.1) Microbiology 03/28/18 Blood Culture - Preliminary, Resulted NO GROWTH AFTER 1 DAY Medications Current Medications Sodium Chloride 1,000 ml @ 1,920 mls/hr Q32M IV Last administered on at 08:48; Start 03/28/18 at 08:16; Stop 03/28/18 at 09:16; Status DC Piperacillin Sod/ Tazobactam Sod 4.5 gm/Sodium Chloride 100 ml @ 200 mls/hr 1X ONCE IV Last administered on 03/28/18at 09:36; Start 03/28/18 at 08:30; Stop 03/28/18 at 08:59; Status DC Vancomycin HCl (Vanco Per Pharmacy) 1 each 1X ONCE MC Last administered on 08:30; Start 03/28/18 at 08:30; Stop 03/28/18 at 10:44; Status DC Acetaminophen (Tylenol) 1,000 mg 1X ONCE PO Last administered on 03/28/18at 09: 31; Start 03/28/18 at 08:30; Stop 03/28/18 at 08:31; Status DC Ibuprofen (Motrin) 600 mg 1X ONCE PO Last administered on 03/28/18 09:31; Start 03/28/18 at 08:30; Stop 03/28/18 at 08:31; Status DC Vancomycin HCl 2 gm/Sodium Chloride 500 ml @ 250 mls/hr 1X ONCE IV Last administered on 03/28/18at 09:00; Start 03/28/18 at 09:00; Stop 03/29/18 at 10:58 ; Status DC Albuterol/ Ipratropium (Duoneb) 3 ml 1X ONCE NEB Last administered on at 08:56; Start 03/28/18 at 08:45; Stop 03/28/18 at 08:46; Status DC Methylprednisolone Sodium Succinate (SOLU-Medrol 125MG VIAL) 125 mg 1X ONCE IV Last administered on 03/28/18at 09:35; Start 03/28/18 at 08:45; Stop 03/28/18 at 08:46; Status DC Ondansetron HCl (Zofran) 4 mg 1X ONCE IV Last administered on 03/28/18at 09:34 ; Start 03/28/18 at 08:45; Stop 03/28/18 at 08:46; Status DC Ondansetron HCl (Zofran) 4 mg PRN Q8HRS PRN IV NAUSEA/VOMITING; Start 03/28/18 at 10:15; Stop 03/29/18 at 10:14; Status DC Morphine Sulfate (Morphine Sulfate) 2 mg PRN Q2HR PRN IV PAIN; Start 03/28/18 at 10:15; Stop 03/29/18 at 10:14; Status DC Acetaminophen (Tylenol) 650 mg PRN Q4HRS PRN PO FEVER Last administered on 03/28at 13:08; Start 03/28/18 at 10:15; Stop 03/29/18 at 10:14; Status DC Oseltamivir Phosphate (Tamiflu) 75 mg BID PO Last administered on 03/29/18at 08: 11; Start 03/28/18 at 13:00; Stop 04/02/18 at 12:59 Piperacillin Sod/ Tazobactam Sod 4.5 gm/Sodium Chloride 100 ml @ 200 mls/hr Q6H IV Last administered on 03/29/18at 08:11; Start 03/28/18 at 16:00; Stop at 10:58; Status DC Levofloxacin/ Dextrose 100 ml @ 100 mls/hr Q24H IV Last administered on at 13:08; Start 03/28/18 at 13:00; Stop 03/29/18 at 10:58; Status DC Albuterol/ Ipratropium (Duoneb) 3 ml RTQID NEB Last administered on 03/29/18at 07:22; Start 03/28/18 at 16:00 Enoxaparin Sodium (Lovenox 40mg Syringe) 40 mg Q24H SQ ; Start 03/28/18 at 12:45 Methylprednisolone Sodium Succinate (SOLU-Medrol 40MG VIAL) 80 mg Q8HRS IV Last administered on 03/29/18at 06:00; Start 03/28/18 at 14:00 Lactobacillus Rhamnosus (Culturelle) 1 cap BID PO Last administered on at 08:11; Start 03/28/18 at 21:00 Piperacillin Sod/ Tazobactam Sod 3.375 gm/Sodium Chloride 50 ml @ 100 mls/hr Q6HRS IV ; Start 03/29/18 at 12:00 Linezolid (Zyvox) 600 mg BID PO ; Start 03/29/18 at 11:00 Active Scripts Active Reported [Proair] Lisinopril 40 Mg Tablet 40 DAILY Symbicort 160-4.5 Mcg Inhaler (Budesonide/Formoterol Fumarate) 10.2 Gm Hfa.aer.ad 1 BID Proair Hfa Inhaler (Albuterol Sulfate) 8.5 Gm Hfa.aer.ad 2 Puff IH PRN Q4-6HRS Albuterol Sulfate Conc Neb Soln (Albuterol Sulfate) 2.5 Mg/0.5 Ml Vial.neb 1 Vial NEB Q6HRS Vitals/I & O Vital Sign - Last 24 Hours 03/28/18 03/28/18 03/28/18 03/28/18 15:20 15:59 19:00 21:51 Temp 97.7 97.7 Pulse 73 68 Resp 20 20 B/P (MAP) 120/71 (87) 124/72 (89) Pulse Ox 96 95 94 O2 Delivery Room Air Room Air Room Air Room Air 03/28/18 03/29/18 03/29/18 03/29/18 23:00 03:00 07:00 07:20 Temp 97.9 98.4 97.6 97.9 98.4 97.6 Pulse 60 57 87 Resp 20 18 18 B/P (MAP) 144/77 (99) 133/64 (87) 134/75 (94) Pulse Ox 94 95 92 94 O2 Delivery Room Air Room Air Room Air Room Air 03/29/18 11:00 Temp 98.1 98.1 Pulse 70 Resp 17 B/P (MAP) 153/91 (111) Pulse Ox 92 O2 Delivery Room Air Intake and Output 03/28/18 03/28/18 03/29/18 15:00 23:00 07:00 Intake Total 120 ml 340 ml 0 ml Output Total 300 ml Balance 120 ml 40 ml 0 ml LUI BOB MD Mar 29, 2018 11:18
[2018-03-29] MEDS: PIPERACILLIN/TAZOBACTAM 3.375 GM in IV NORMAL SALINE 50ML 50 ML IV SCH ×2 (12:00→17:44)
[2018-03-29] MEDS ORDERED: POTASSIUM CHLORIDE 20 MEQ TABLET.ER. PO ONE (12:30)
[2018-03-29] MEDS: ENOXAPARIN 40 MG/0.4 ML SYRINGE. SQ SCH (12:45)
[2018-03-29] MEDS: LINEZOLID 600 MG TABLET PO SCH ×2 (13:41→21:15)
[2018-03-29] MEDS: guaiFENesin DM 600/30MG 1 TAB TAB.ER.12H PO SCH ×2 (13:42→21:15)
--- NOTE | 2018-03-29 14:06 | NUR ---
SW following pt for anticipated dc needs. Chart reviewed. Pt lives at home with spouse and on room air. No SW needs indicated at this time.
[2018-03-29 15:00] VITALS: BP 139/72
[2018-03-29 19:00] VITALS: BP 140/80
[2018-03-29 23:00] VITALS: BP 141/82
--- NOTE | 2018-03-30 00:25 | CONS ---
DATE OF CONSULTATION: 03/29/2018 REFERRING PHYSICIAN: Dr. Jiménez. REASON FOR CONSULTATION: Flu and pneumonia. HISTORY OF PRESENT ILLNESS: A 62-year-old male with history of asthma, hypertension, hyperlipidemia, presented to the ER with complaints of cough, fever, chills, body ache, shortness of breath and nausea and vomiting 4 days prior to admission, he tried to use [id number] medication, did not help, so he presented to the ER. Flu screen was positive. X-ray revealed infiltrate. He was started on IV vancomycin, Zosyn and Levaquin. ID consult has been requested for further management. He was also started on Tamiflu. Today, the patient says he is feeling a little better, still has some cough, dry. No chest pain and denies any nausea. Still has some upset stomach, no vomiting. Denies any headache, runny nose, sore throat, difficulty swallowing, symptoms, rash, chest pain with deep breathing. PAST MEDICAL HISTORY: Hypertension, hyperlipidemia, and asthma. PAST SURGICAL HISTORY: None. FAMILY HISTORY: As per HPI. SOCIAL HISTORY: Denies smoking, ETOH social, no drugs. Lives with his . Has a dog healthy. CURRENT MEDICATION: IV vancomycin, Zosyn, Levaquin, Tamiflu, albuterol, ondansetron, morphine, acetaminophen. ALLERGIES: No known drug allergies. REVIEW OF SYSTEMS: Negative except for above in HPI. PHYSICAL EXAMINATION: VITAL SIGNS: Temperature 97.6, T-max 103.2, pulse 68, respiratory rate 20, blood pressure 124/72, oxygen saturation 94% on room air. GENERAL: Alert, oriented x 3 male, ambulating in room, in no acute distress, cooperative, pleasant. HEENT: Normocephalic, atraumatic, anicteric. No thrush. Oral mucosa moist. NECK: Supple. No JVD. No thyromegaly. LUNGS: Clear bilaterally. Diminished breath sounds at the bases, few expiratory rhonchi. HEART: S1, S2, no gallops or murmurs. ABDOMEN: Soft, obese. Bowel sounds present, nontender, nondistended. EXTREMITIES: No edema, no cyanosis, no clubbing. DERM: Warm, dry, no generalized rash. Patches of vitiligo present, especially over both the lower extremity, upper extremity and on the face. No skin breakdown. BACK: Reveals no CVA tenderness. NEUROLOGIC: Alert and oriented x 3, grossly nonfocal. PSYCHIATRIC: Appropriate mood and affect. LABORATORY DATA: WBCs 13.7, hemoglobin 15.1, platelets 797. Procalcitonin 0.88. CK 223. Sodium 141, potassium 3.3, chloride 107, bicarbonate 19, BUN 15, creatinine 1.0, glucose 164. Influenza A screen positive. UA negative. Blood culture 03/28/2018 negative so far. RADIOLOGY: Chest x-ray, focus of consolidation identified in the right lower lobe, likely pneumonia. IMPRESSION: 1. Right lung pneumonia. 2. Influenza A positive. 3. Febrile illness. 4. Leukocytosis. 5. Hypertension. 6. Asthma. RECOMMENDATIONS: 1. Continue IV Zosyn and Tamiflu. 2. We will discontinue IV vancomycin and Levaquin. 3. Start patient on empiric Zyvox. 4. Follow up cultures and susceptibility results. 5. Continue supportive care. 6. Follow up labs in a.m. and cultures. Thank you, Dr. Jiménez, for consulting Infectious Disease to participate in this patient's care. If you have any questions, do not hesitate to contact me. Discussed with RN. MUNIR HENDRICKSON MD DR: CY/nts JOB#: [id number] / [id number]
[2018-03-30 03:00] VITALS: BP 138/81
[2018-03-30] MEDS: PIPERACILLIN/TAZOBACTAM 3.375 GM in IV NORMAL SALINE 50ML 50 ML IV SCH ×4 (06:05→12:21)
[2018-03-30] MEDS: methylPREDNISolone SOD SUCC PF 40 MG/ML VIAL. IV SCH ×2 (06:05→13:45)
[2018-03-30 07:00] VITALS: BP 156/86
[2018-03-30] MEDS: IPRATRPIUM/ALBUTEROL 0.5/2.5MG 3 ML NEBU. NEB SCH ×2 (07:12→13:03)
[2018-03-30] MEDS ORDERED: POTASSIUM CHLORIDE 20 MEQ TABLET.ER. PO SCH (08:00)
[2018-03-30 08:44] LABS: BASO % 0 % (0-3); EOS % 0 % (0-3); HEMATOCRIT 42.7 % (39.0-53.0); HEMOGLOBIN 14.5 g/dL (13.0-17.5); LYMPH # 1.2 x10^3/uL (1.0-4.8); LYMPH % 7 % (24-48); MEAN CORPUSCULAR HEMOGLOBIN 32 pg (25-35); MEAN CORPUSCULAR HGB CONC 34 g/dL (31-37); MEAN CORPUSCULAR VOLUME 94 fL (79-100); MONO # 0.7 x10^3/uL (0.0-1.1); MONO % 4 % (0-9); NEUT # 16.1 x10^3uL (1.8-7.7); NEUT % 89 % (31-73); PLATELET COUNT 241 x10^3/uL (140-400); RED BLOOD COUNT 4.54 x10^6/uL (4.30-5.70); RED CELL DISTRIBUTION WIDTH 13.2 % (11.5-14.5)
[2018-03-30] MEDS: guaiFENesin DM 600/30MG 1 TAB TAB.ER.12H PO SCH (08:57)
[2018-03-30] MEDS: OSELTAMIVIR 75 MG CAPSULE PO SCH (08:57)
[2018-03-30] MEDS: LACTOBACILLUS RHAMNOSUS GG 1 CAPSULE. PO SCH (08:57)
[2018-03-30] MEDS: LINEZOLID 600 MG TABLET PO SCH (08:58)
[2018-03-30 09:08] LABS: ALBUMIN 3.1 g/dL (3.4-5.0); ALBUMIN/GLOBULIN RATIO 0.7 (1.0-1.7); CALCIUM 8.8 mg/dL (8.5-10.1); GFR 75.7; TOTAL BILIRUBIN 0.9 mg/dL (0.2-1.0); TOTAL PROTEIN 7.4 g/dL (6.4-8.2)
[2018-03-30 11:00] VITALS: BP 135/74
[2018-03-30] MEDS ORDERED: OSEL75CA PO (12:30)
[2018-03-30] MEDS ORDERED: POTASSIUM CHLORIDE 20 MEQ TABLET.ER. PO ONE (12:30)
[2018-03-30] MEDS ORDERED: AMOX1TAB61 PO (12:30)
--- NOTE | 2018-03-30 12:34 | PDOC3 ---
Discharge Summary Visit Information Date of Admission: Mar 28, 2018 Date of Discharge: Mar 30, 2018 Admitting Diagnosis: sepsis, pna Final Diagnosis 1. right lower lobe pneumonia. community acquired 2. FLU A POS 3. HTN 4. HYPONATREMIA, HYPOKALEMIA 5. HX ASTHMA 6. SEPSIS Problems Medical Problems: (1) Shortness of breath Status: Acute Brief Hospital Course Allergies Allergies Coded Allergies Type Severity Reaction Last Updated Verified No Known Drug Allergies 05/17/13 No Vital Signs Vital Signs Date Time Temp Pulse Resp B/P (MAP) Pulse Ox O2 Delivery O2 Flow Rate FiO2 03/30/18 11:00 98.0 86 20 135/74 (94) 93 Room Air 98.0 Lab Results Laboratory Tests Test 03/29/18 04:08 03/30/18 08:05 White Blood Count 13.7 x10^3/uL (4.0-11.0) 18.0 x10^3/uL (4.0-11.0) Red Blood Count 4.66 x10^6/uL (4.30-5.70) 4.54 x10^6/uL (4.30-5.70) Hemoglobin 15.1 g/dL (13.0-17.5) 14.5 g/dL (13.0-17.5) Hematocrit 43.7 % (39.0-53.0) 42.7 % (39.0-53.0) Mean Corpuscular Volume 94 fL (79-100) 94 fL (79-100) Mean Corpuscular Hemoglobin 32 pg (25-35) 32 pg (25-35) Mean Corpuscular Hemoglobin Concent 35 g/dL (31-37) 34 g/dL (31-37) Red Cell Distribution Width 13.2 % (11.5-14.5) 13.2 % (11.5-14.5) Platelet Count 197 x10^3/uL (140-400) 241 x10^3/uL (140-400) Neutrophils (%) (Auto) 88 % (31-73) 89 % (31-73) Lymphocytes (%) (Auto) 8 % (24-48) 7 % (24-48) Monocytes (%) (Auto) 4 % (0-9) 4 % (0-9) Eosinophils (%) (Auto) 0 % (0-3) 0 % (0-3) Basophils (%) (Auto) 0 % (0-3) 0 % (0-3) Neutrophils # (Auto) 12.1 x10^3uL (1.8-7.7) 16.1 x10^3uL (1.8-7.7) Lymphocytes # (Auto) 1.1 x10^3/uL (1.0-4.8) 1.2 x10^3/uL (1.0-4.8) Monocytes # (Auto) 0.5 x10^3/uL (0.0-1.1) 0.7 x10^3/uL (0.0-1.1) Eosinophils # (Auto) 0.0 x10^3/uL (0.0-0.7) 0.0 x10^3/uL (0.0-0.7) Basophils # (Auto) 0.0 x10^3/uL (0.0-0.2) 0.0 x10^3/uL (0.0-0.2) Sodium Level 141 mmol/L (136-145) 140 mmol/L (136-145) Potassium Level 3.3 mmol/L (3.5-5.1) 3.0 mmol/L (3.5-5.1) Chloride Level 107 mmol/L (98-107) 105 mmol/L (98-107) Carbon Dioxide Level 19 mmol/L (21-32) 20 mmol/L (21-32) Anion Gap 15 (6-14) 15 (6-14) Blood Urea Nitrogen 15 mg/dL (8-26) 16 mg/dL (8-26) Creatinine 1.0 mg/dL (0.7-1.3) 1.0 mg/dL (0.7-1.3) Estimated GFR (Cockcroft-Gault) 75.7 75.7 Glucose Level 164 mg/dL (70-99) 168 mg/dL (70-99) Calcium Level 8.5 mg/dL (8.5-10.1) 8.8 mg/dL (8.5-10.1) BUN/Creatinine Ratio 16 (6-20) Total Bilirubin 0.9 mg/dL (0.2-1.0) Aspartate Amino Transf (AST/SGOT) 46 U/L (15-37) Alanine Aminotransferase (ALT/SGPT) 79 U/L (16-63) Alkaline Phosphatase 57 U/L (46-116) Total Protein 7.4 g/dL (6.4-8.2) Albumin 3.1 g/dL (3.4-5.0) Albumin/Globulin Ratio 0.7 (1.0-1.7) Laboratory Tests Test 03/30/18 08:05 White Blood Count 18.0 x10^3/uL (4.0-11.0) Red Blood Count 4.54 x10^6/uL (4.30-5.70) Hemoglobin 14.5 g/dL (13.0-17.5) Hematocrit 42.7 % (39.0-53.0) Mean Corpuscular Volume 94 fL (79-100) Mean Corpuscular Hemoglobin 32 pg (25-35) Mean Corpuscular Hemoglobin Concent 34 g/dL (31-37) Red Cell Distribution Width 13.2 % (11.5-14.5) Platelet Count 241 x10^3/uL (140-400) Neutrophils (%) (Auto) 89 % (31-73) Lymphocytes (%) (Auto) 7 % (24-48) Monocytes (%) (Auto) 4 % (0-9) Eosinophils (%) (Auto) 0 % (0-3) Basophils (%) (Auto) 0 % (0-3) Neutrophils # (Auto) 16.1 x10^3uL (1.8-7.7) Lymphocytes # (Auto) 1.2 x10^3/uL (1.0-4.8) Monocytes # (Auto) 0.7 x10^3/uL (0.0-1.1) Eosinophils # (Auto) 0.0 x10^3/uL (0.0-0.7) Basophils # (Auto) 0.0 x10^3/uL (0.0-0.2) Sodium Level 140 mmol/L (136-145) Potassium Level 3.0 mmol/L (3.5-5.1) Chloride Level 105 mmol/L (98-107) Carbon Dioxide Level 20 mmol/L (21-32) Anion Gap 15 (6-14) Blood Urea Nitrogen 16 mg/dL (8-26) Creatinine 1.0 mg/dL (0.7-1.3) Estimated GFR (Cockcroft-Gault) 75.7 BUN/Creatinine Ratio 16 (6-20) Glucose Level 168 mg/dL (70-99) Calcium Level 8.8 mg/dL (8.5-10.1) Total Bilirubin 0.9 mg/dL (0.2-1.0) Aspartate Amino Transf (AST/SGOT) 46 U/L (15-37) Alanine Aminotransferase (ALT/SGPT) 79 U/L (16-63) Alkaline Phosphatase 57 U/L (46-116) Total Protein 7.4 g/dL (6.4-8.2) Albumin 3.1 g/dL (3.4-5.0) Albumin/Globulin Ratio 0.7 (1.0-1.7) Brief Hospital Course Mr. Garcia is a 62 old admit, flu pos, isolate, broad abx given , then changed to zyvox and zosyn. no hx of hospitalization in the past 2 years, community acq. PNA, changed to Augmentin for DC cont tamiflu f/u primary care Discharge Information Condition at Discharge: Improved Follow Up: Weeks Disposition/Orders: D/C to Home Scheduled Albuterol Sulfate (Albuterol Sulfate Conc Neb Soln) 2.5 Mg/0.5 Ml Vial.neb, 1 VIAL NEB Q6HRS, #120 Ref 5 (Reported) Entered as Reported by: LUCRETIA PATEL on 01/03/14 0232 Albuterol Sulfate (Proair Hfa Inhaler) 8.5 Gm Hfa.aer.ad, 2 PUFF IH PRN Q4-6HRS , #1 (Reported) Entered as Reported by: LUCRETIA PATEL on 01/03/14 0232 Amoxicillin/Potassium Clav (Augmentin 875-125 Tablet) 1 Each Tablet, 1 TAB PO BID for Pneumonia, #14 Prescribed by: CHRISTA LAWTON on 03/30/18 1230 Budesonide/Formoterol Fumarate (Symbicort 160-4.5 Mcg Inhaler) 10.2 Gm Hfa.aer.ad, 1 BID for Asthma , (Reported) Entered as Reported by: KT JARQUIN on 03/28/18 1043 Last Action: New Order on 03/28/18 104 by KT JARQUIN Lisinopril (Lisinopril) 40 Mg Tablet, 40 DAILY for HTN, (Reported) Entered as Reported by: KT JARQUIN on 03/28/181042 Last Action: New Order on 03/28/181042 by KT JARQUIN Oseltamivir Phosphate (Tamiflu) 75 Mg Capsule, 75 MG PO BID for influenza A, #6 Prescribed by: CHRISTA LAWTON on 03/30/18 1230 Miscellaneous Medications [Proair] , (Reported) Entered as Reported by: KT JARQUIN on 03/28/181042 Last Action: New Order on 03/28/181042 by CHRISTA ADKINS MD Mar 30, 2018 12:34
[2018-03-30] MEDS: ENOXAPARIN 40 MG/0.4 ML SYRINGE. SQ SCH (12:45)
--- NOTE | 2018-03-30 14:00 | PDOC ---
Infectious Disease Note Subjective Subjective Feeling better over-all Less cough No fevers last 24 hours Eating a bit more ROS ROS per HPI Vital Sign Vital Signs Vital Signs Date Time Temp Pulse Resp B/P (MAP) Pulse Ox O2 Delivery O2 Flow Rate FiO2 03/30/18 13:06 95 Room Air 03/30/18 11:00 98.0 86 20 135/74 (94) 98.0 Physical Exam PHYSICAL EXAM GENERAL: Propped up in bed, alert, NAD HEENT: Normocephalic, atraumatic, anicteric. No thrush. Oral mucosa moist. NECK: Supple. No JVD. No thyromegaly. LUNGS: Clear bilaterally. Diminished breath sounds at the bases, few expiratory rhonchi. HEART: S1, S2, no gallops or murmurs. ABDOMEN: Soft, obese. Bowel sounds present, nontender, nondistended. EXTREMITIES: No edema, no cyanosis, no clubbing. DERM: Warm, dry, no generalized rash. Patches of vitiligo present, especially over both the lower extremity, upper extremity and on the face. No skin breakdown. NEUROLOGIC: Alert and oriented x 3, grossly nonfocal. PIV Labs Lab Laboratory Tests Test 03/30/18 08:05 White Blood Count 18.0 x10^3/uL (4.0-11.0) Red Blood Count 4.54 x10^6/uL (4.30-5.70) Hemoglobin 14.5 g/dL (13.0-17.5) Hematocrit 42.7 % (39.0-53.0) Mean Corpuscular Volume 94 fL (79-100) Mean Corpuscular Hemoglobin 32 pg (25-35) Mean Corpuscular Hemoglobin Concent 34 g/dL (31-37) Red Cell Distribution Width 13.2 % (11.5-14.5) Platelet Count 241 x10^3/uL (140-400) Neutrophils (%) (Auto) 89 % (31-73) Lymphocytes (%) (Auto) 7 % (24-48) Monocytes (%) (Auto) 4 % (0-9) Eosinophils (%) (Auto) 0 % (0-3) Basophils (%) (Auto) 0 % (0-3) Neutrophils # (Auto) 16.1 x10^3uL (1.8-7.7) Lymphocytes # (Auto) 1.2 x10^3/uL (1.0-4.8) Monocytes # (Auto) 0.7 x10^3/uL (0.0-1.1) Eosinophils # (Auto) 0.0 x10^3/uL (0.0-0.7) Basophils # (Auto) 0.0 x10^3/uL (0.0-0.2) Sodium Level 140 mmol/L (136-145) Potassium Level 3.0 mmol/L (3.5-5.1) Chloride Level 105 mmol/L (98-107) Carbon Dioxide Level 20 mmol/L (21-32) Anion Gap 15 (6-14) Blood Urea Nitrogen 16 mg/dL (8-26) Creatinine 1.0 mg/dL (0.7-1.3) Estimated GFR (Cockcroft-Gault) 75.7 BUN/Creatinine Ratio 16 (6-20) Glucose Level 168 mg/dL (70-99) Calcium Level 8.8 mg/dL (8.5-10.1) Total Bilirubin 0.9 mg/dL (0.2-1.0) Aspartate Amino Transf (AST/SGOT) 46 U/L (15-37) Alanine Aminotransferase (ALT/SGPT) 79 U/L (16-63) Alkaline Phosphatase 57 U/L (46-116) Total Protein 7.4 g/dL (6.4-8.2) Albumin 3.1 g/dL (3.4-5.0) Albumin/Globulin Ratio 0.7 (1.0-1.7) Micro Microbiology 03/28/18 Blood Culture - Preliminary, Resulted NO GROWTH AFTER 2 DAYS Objective Assessment 1. Right lung pneumonia. 2. Influenza A positive. 3. Febrile illness. 4. Leukocytosis, now on steroids 5. Hypertension. 6. Asthma. Plan Plan of Care Zyvox, Zosyn and Tamiflu Probiotics f/u Supportive care D/w family Patient seen and examined. Chart reviewed in detail. Case d/w PERSONNEL COORDINATOR. Agree with above plan. EMRE CURRIE APRN Mar 30, 2018 14:00 MAGALY WHITMORE MD Mar 30, 2018 23:28
[2018-03-30 15:00] VITALS: BP 132/72
--- NOTE | 2018-03-30 15:48 | NUR ---
Discharge teaching provided written and verbal to pt's son,understanding verbalized. Pt dismissed to home with all belongings accompanied by his son. Transported to exit per w/c at 1540.
[2018-03-31] MEDS ORDERED: POTASSIUM CHLORIDE 20 MEQ TABLET.ER. PO SCH (08:00)
--- NOTE | 2018-04-01 14:29 | EKG ---
[facility] [address] [place] [address] Test Date: 2018-03-28 Test Time: 12:19:58 Pat Name: RANDEE MARTINEZDepartment: Room: [facility] Gender: M Sales Designer: : 1955 Requested By: LUI BOB Order Number: [id number] Reading MD: Measurements Intervals [place] Rate: P: MI: QRS: QRSD: T: QT: QTc: Interpretive Statements
== END 2018-03-30 15:40 | disposition home or self-care (01) | DRG 871 ==
LOC: ER 07:50 → 5 NORTH 09:29
PROVIDERS: ADMIT Family Medicine; ATTEND Family Medicine
DX: A41.9 Sepsis, unspecified organism (principal); J10.08 Influenza due to other identified influenza virus with other specified pneumonia; E87.1 Hypo-osmolality and hyponatremia; E78.5 Hyperlipidemia, unspecified; E87.6 Hypokalemia; I10 Essential (primary) hypertension; J45.909 Unspecified asthma, uncomplicated; Z82.49 Family history of ischemic heart disease and other diseases of the circulatory system; Z83.3 Family history of diabetes mellitus; Z79.899 Other long term (current) drug therapy
CPT/HCPCS: 36415; 71046; 80048; 80053; 81001; 82553; 83605; 84145; 85025; 85610; 85730; 87040; 87804; 93005; 94640; 94760; 96365; 96375; J1956; J2405; J2543; J2920; J2930; J3370; J7030; J7040; J7620; 99285-25